=== PATIENT | female | born 1940 ===

== ENCOUNTER 2023-01-23 12:30 | Inpatient (IN) | payer OTHER ==
[~2023-01-23] VITALS: Ht 149.9 cm; Wt 41.7 kg
[2023-01-24] MEDS ORDERED: FAMOTIDINE40 MG PO (09:12)
[2023-01-24] MEDS ORDERED: ALDACTONE25 MG PO (09:13)
[2023-01-24] MEDS ORDERED: ELIQUIS2.5 MG PO (09:13)
[2023-01-24] MEDS ORDERED: ACID REDUCER20 M1 PO (09:13)
[2023-01-24] MEDS ORDERED: MONTELUKAST SOD10 MG PO (09:13)
[2023-01-24] MEDS ORDERED: LEVALBUTER1.25 MG/0. IH (09:14)
[2023-01-24] MEDS ORDERED: HORIZANT300 MG PO (09:14)
[2023-01-24] MEDS ORDERED: LEVALBUTEROL TA15 GM IH (09:15)
[2023-01-25] MEDS ORDERED: OMEPRAZOLE20 MG (07:53)
[2023-01-25] MEDS ORDERED: HYOSCYAMINE0.125 M1 (07:53)
[2023-01-25] MEDS ORDERED: DICYCLOMINE HCL10 MG (07:53)
[2023-01-25] MEDS ORDERED: CYCLOBENZAPRINE10 MG (07:53)
[2023-01-25] MEDS ORDERED: NORVASC2.5 MG (07:53)
[2023-01-25] MEDS ORDERED: ALENDRONATE SOD70 MG (07:53)
[2023-01-25] MEDS ORDERED: GABAPENTIN300 M2 (07:53)
[2023-01-28] MEDS ORDERED: LEVSIN0.125 MG SL (10:40)
== END 2023-01-28 12:35 | disposition home or self-care (01) | DRG 331 ==
LOC: O/R 01-25 06:00 → SURH 01-25 12:30
PROVIDERS: ADMIT Surgery; ATTEND Surgery
PROC: 07BB4ZZ Excision of Mesenteric Lymphatic, Percutaneous Endoscopic Approach (ICD-10-PCS; 2023-01-25)
PROC: 0DN84ZZ Release Small Intestine, Percutaneous Endoscopic Approach (ICD-10-PCS; 2023-01-25)
PROC: 0DBU4ZZ Excision of Omentum, Percutaneous Endoscopic Approach (ICD-10-PCS; 2023-01-25)
PROC: 0WQF4ZZ Repair Abdominal Wall, Percutaneous Endoscopic Approach (ICD-10-PCS; 2023-01-25)
PROC: 8E0W4CZ Robotic Assisted Procedure of Trunk Region, Percutaneous Endoscopic Approach (ICD-10-PCS; 2023-01-25)
PROC: 4A1BXSH Monitoring of Gastrointestinal Vascular Perfusion using Indocyanine Green Dye, External Approach (ICD-10-PCS; 2023-01-25)
PROC: 0DTF4ZZ Resection of Right Large Intestine, Percutaneous Endoscopic Approach (ICD-10-PCS; principal; 2023-01-25 15:45)
DX: K57.30 Diverticulosis of large intestine without perforation or abscess without bleeding (principal); D12.5 Benign neoplasm of sigmoid colon